=== PATIENT | female | born 1940 | race Caucasian/White ===

== ENCOUNTER 2022-10-17 08:10 | Emergency (ER) | payer MEDICARE ==
[~2022-10-17] VITALS: Ht 149.9 cm; Wt 74.8 kg
[~2022-10-17 08:10] MED LIST: APIX5TAB PO; ATOR10 PO; CALC-1038 PO; CELE200 PO; DILT240C96 PO; FURO20TA6 PO; IRON PO; LETR2.5T7 PO; LEVO25TA54 PO; METO-391 PO; MULT-1192 PO; OMEP20CA12 PO; OXYB5TAB15 PO; POTA-79 PO; SPIR25TA PO; VIT B PO; vit b 12 PO
[2022-10-17 08:12] VITALS: BP 134/76
[2022-10-17 09:10] LABS: BASOPHILS % (AUTO) 0.9 % (0.0-5.0); EOSINOPHILS % (AUTO) 5.4 % (0.0-8.0); HEMATOCRIT 39.3 % (36-48); LYMPHOCYTES % (AUTO) 32.4 % (21.0-51.0); MEAN CORPUSCULAR HEMOGLOBIN 31.3 pg (27.0-33.0); MEAN CORPUSCULAR VOLUME 100.8 fL (79-99); MONOCYTES % (AUTO) 24.2 % (3.0-13.0); NEUTROPHILS % (AUTO) 36.2 % (40.0-77.0); PLATELET COUNT (AUTO) 130 K/uL (130-400); RED CELL DISTRIBUTION WIDTH 14.3 % (11.0-15.5); WHITE BLOOD COUNT (AUTO) 4.4 K/uL (4.8-10.8)
[2022-10-17 09:24] LABS: CREATININE 1.9 mg/dL (0.5-1.5); POTASSIUM 3.8 mmol/L (3.5-5.1)
[2022-10-17 09:25] LABS: ALBUMIN 4.5 g/dL (3.5-5.0); TOTAL PROTEIN, SERUM 7.9 g/dL (6.0-8.3)
[2022-10-17] MEDS ORDERED: HYD25 PO (10:05)
== END 2022-10-17 10:22 | disposition home or self-care (01) ==
LOC: EDH 08:10
DX: L29.9 Pruritus, unspecified (principal); N28.9 Disorder of kidney and ureter, unspecified; I48.91 Unspecified atrial fibrillation; E11.9 Type 2 diabetes mellitus without complications; I10 Essential (primary) hypertension; Z90.710 Acquired absence of both cervix and uterus; Z90.12 Acquired absence of left breast and nipple; Z98.890 Other specified postprocedural states; Z79.899 Other long term (current) drug therapy
CPT/HCPCS: 36415; 80053; 85025

== ENCOUNTER 2024-04-09 12:01 | Inpatient (IN) | payer MEDICARE ==
[~2024-04-09] VITALS: Ht 162.6 cm; Wt 76.2 kg
[~2024-04-09 12:01] MED LIST changes: -ATOR10 PO; -CALC-1038 PO; -CELE200 PO; -DILT240C96 PO; -IRON PO; -LETR2.5T7 PO; -MULT-1192 PO; -OXYB5TAB15 PO; -POTA-79 PO; -SPIR25TA PO; -VIT B PO; -vit b 12 PO
[2024-04-09 12:25] LABS: BASOPHILS # (AUTO) 0.04 K/uL (0.00-0.20); BASOPHILS % (AUTO) 0.6 % (0.0-5.0); EOSINOPHILS # (AUTO) 0.27 K/uL (0.00-0.70); EOSINOPHILS % (AUTO) 4.2 % (0.0-8.0); HEMATOCRIT 23.3 % (36-48); LYMPHOCYTES # (AUTO) 1.1 K/uL (1.0-4.8); LYMPHOCYTES % (AUTO) 17.8 % (21.0-51.0); MEAN CORPUSCULAR HEMOGLOBIN 30.8 pg (27.0-33.0); MEAN CORPUSCULAR VOLUME 102.6 fL (79-99); MONOCYTES # (AUTO) 1.7 K/uL (0.1-1.0); NEUTROPHILS # (AUTO) 3.1 K/uL (1.8-7.7); NEUTROPHILS % (AUTO) 48.8 % (40.0-77.0); PLATELET COUNT (AUTO) 282 K/uL (130-400); RED BLOOD CELL COUNT(AUTO) 2.27 MIL/uL (4.00-5.50); RED CELL DISTRIBUTION WIDTH 17.5 % (11.0-15.5); WHITE BLOOD COUNT (AUTO) 6.4 K/uL (4.8-10.8)
[2024-04-09 12:32] LABS: CREATININE 1.2 mg/dL (0.5-1.0); POTASSIUM 4.5 mmol/L (3.5-5.1)
[2024-04-09 12:37] LABS: ALBUMIN 2.5 g/dL (3.5-5.0); BILIRUBIN,TOTAL 0.7 mg/dL (0.2-1.0); TOTAL PROTEIN, SERUM 6.4 g/dL (6.0-8.3)
[2024-04-09 12:43] LABS: B-TYPE NATRIURETIC PEPTIDE 1430 pg/mL (0-100)
[2024-04-09] MEDS: 0.9% NACL 500ML IV.SOLN 500 ML IV ONE (13:14)
[2024-04-09] MEDS: PANTOPRAZOLE 40 MG/VIAL IVP ONE (14:32)
[2024-04-09 16:30] VITALS: BP 157/66; PULSE 62; RESP 16; O2SAT 99
[2024-04-09 16:35] LABS: INR 1.15 (0.85-1.15); PROTHROMBIN TIME 13.4 SEC (9.6-11.6)
[2024-04-09 16:36] LABS: PARTIAL THROMBOPLASTIN TIME 34.9 SEC (26.3-35.5)
[2024-04-09 16:54] LABS: RETICULOCYTE % (AUTO) 3.03 % (0.42-2.23)
[2024-04-09 17:08] LABS: HEMOGLOBIN A1C 5.4 % (4.0-6.0)
[2024-04-09] MEDS ORDERED: HYDRALAZINE 20MG/ML VIAL IV PRN (17:30)
[2024-04-09] MEDS ORDERED: DOCU100T PO (17:32)
[2024-04-09] MEDS ORDERED: TRAM50TA4 PO (17:32)
[2024-04-09] MEDS ORDERED: MIDO10TA PO (17:32)
[2024-04-09] MEDS ORDERED: FERR-72 PO (17:32)
[2024-04-09] MEDS ORDERED: METO-408 PO (17:32)
[2024-04-09] MEDS ORDERED: POLY17PO4 PO (17:32)
[2024-04-09] MEDS ORDERED: GABA-529 PO (17:32)
[2024-04-09] MEDS ORDERED: LEVO25CA4 PO (17:32)
[2024-04-09 17:33] LABS: % IRON SATURATION 32.4 % (22-44)
[2024-04-09 19:06] VITALS: BP 175/91; PULSE 67; RESP 16
[2024-04-09 19:50] VITALS: O2SAT 95
[2024-04-09] MEDS: PANTOPRAZOLE 40 MG/VIAL IVP SCH (20:48)
[2024-04-09] MEDS: ACETAMINOPHEN 500 MG TABLET PO PRN (20:49)
[2024-04-09 21:10] LABS: APPEARANCE,URINE CLOUDY (CLEAR); BILIRUBIN,URINE NEGATIVE (NEGATIVE); COLOR,URINE LIGHT-YELLOW (YELLOW); GLUCOSE, URINE (UA) NEGATIVE (NEGATIVE); KETONES,URINE NEGATIVE (NEGATIVE); LEUKOCYTE ESTERASE ,URINE 500 Leu/uL (NEGATIVE); NITRATE,URINE NEGATIVE (NEGATIVE); OCCULT BLOOD,URINE MODERATE (NEGATIVE); PROTEIN,URINE 200 mg/dL (NEGATIVE); UROBILINOGEN,URINE 0.2 mg/dL (0.2-1.0)
[2024-04-09 21:14] LABS: ADD UA MICROSCOPIC YES
[2024-04-09 21:18] LABS: BACTERIA,URINE RARE /HPF (None Seen); MUCUS,URINE RARE LPF (None Seen); RBC,URINE 26-50 /HPF (0-1); SQUAMOUS EPITHELIAL CELL,UR RARE /HPF (0-2); WBC CLUMP FEW /HPF (0-1); WBC,URINE 26-50 /HPF (0-1)
[2024-04-09 22:43] LABS: HEMATOCRIT 28.2 % (36-48)
[2024-04-09 23:09] VITALS: BP 147/74; PULSE 66; RESP 16
[2024-04-10] VITALS (8 sets, daily range): BP systolic 134–174; BP diastolic 63–83; PULSE 60–93; RESP 16–20; O2SAT 96–99
[2024-04-10 00:51] LABS: HEMATOCRIT 25.7 % (36-48)
[2024-04-10] MEDS: CEFTRIAXONE 1G VIAL IVPB SCH (04:45)
[2024-04-10 06:51] LABS: BASOPHILS # (AUTO) 0.06 K/uL (0.00-0.20); EOSINOPHILS # (AUTO) 0.28 K/uL (0.00-0.70); EOSINOPHILS % (AUTO) 4.6 % (0.0-8.0); HEMATOCRIT 28.3 % (36-48); IMMATURE GRANULOCYTE ABSOLUTE 0.12 K/uL (0-1); LYMPHOCYTES # (AUTO) 1.1 K/uL (1.0-4.8); LYMPHOCYTES % (AUTO) 17.7 % (21.0-51.0); MEAN CORPUSCULAR HGB CONC 30.4 g/dL (32.0-36.0); MEAN CORPUSCULAR VOLUME 98.6 fL (79-99); MONOCYTES # (AUTO) 1.6 K/uL (0.1-1.0); MONOCYTES % (AUTO) 26.6 % (3.0-13.0); NEUTROPHILS # (AUTO) 2.9 K/uL (1.8-7.7); NEUTROPHILS % (AUTO) 48.1 % (40.0-77.0); PLATELET COUNT (AUTO) 261 K/uL (130-400); RED BLOOD CELL COUNT(AUTO) 2.87 MIL/uL (4.00-5.50); RED CELL DISTRIBUTION WIDTH 19.5 % (11.0-15.5); WHITE BLOOD COUNT (AUTO) 6.1 K/uL (4.8-10.8)
[2024-04-10 07:03] LABS: CREATININE 1.1 mg/dL (0.5-1.0); POTASSIUM 4.3 mmol/L (3.5-5.1)
[2024-04-10] MEDS ORDERED: NON-FORMULARY MEDICATION 1 EACH (Omeprazole 20 MG) PO SCH (09:00)
[2024-04-10] MEDS: FERROUS SULFATE 325 MG TABLET.DR PO SCH (09:03)
[2024-04-10] MEDS: GABAPENTIN 100 MG CAPSULE PO SCH (09:04)
[2024-04-10] MEDS: METOPROLOL SUCCINATE 25 MG TAB.SR.24H PO SCH (09:04)
[2024-04-10 13:07] LABS: HEMATOCRIT 32.2 % (36-48)
[2024-04-10] MEDS: HYDROCORTISONE 25 MG SUPPOSITORY PR ONE (19:05)
[2024-04-10] MEDS: HYDROCORTISONE 25 MG SUPPOSITORY PR SCH (21:00)
[2024-04-10] MEDS: NYSTATIN-TRIAMCINOLONE CREAM 15 GM TP SCH (22:50)
[2024-04-10 23:45] LABS: HEMATOCRIT 27.1 % (36-48); MEAN CORPUSCULAR HEMOGLOBIN 30.7 pg (27.0-33.0); MEAN CORPUSCULAR HGB CONC 31.7 g/dL (32.0-36.0); MEAN CORPUSCULAR VOLUME 96.8 fL (79-99); NUCLEATED RED BLOOD CELLS 0.2 % (0.0-0.19); RED BLOOD CELL COUNT(AUTO) 2.8 MIL/uL (4.00-5.50); RED CELL DISTRIBUTION WIDTH 19.3 % (11.0-15.5); WHITE BLOOD COUNT (AUTO) 8.8 K/uL (4.8-10.8)
[2024-04-10 23:53] LABS: CREATININE 1.2 mg/dL (0.5-1.0); POTASSIUM 4.2 mmol/L (3.5-5.1)
[2024-04-11] VITALS (7 sets, daily range): BP systolic 104–165; BP diastolic 56–91; PULSE 65–77; RESP 18–20; O2SAT 99
[2024-04-11] MEDS: LEVOTHYROXINE 25 MCG TABLET PO SCH (06:31)
[2024-04-12] VITALS (7 sets, daily range): BP systolic 117–159; BP diastolic 66–96; PULSE 66–88; RESP 18–20; O2SAT 96–97
[2024-04-12] MEDS ORDERED: COMPOUND IV MISC 1 EACH IVSOLN MISC PRN (12:30)
[2024-04-12] MEDS: MEROPENEM 1 GM in 0.9%NACL 100ML IV SCH (12:46)
[2024-04-13] VITALS (10 sets, daily range): BP systolic 94–146; BP diastolic 54–86; PULSE 64–90; RESP 16–20; O2SAT 96
[2024-04-13 04:54] LABS: BASOPHILS # (AUTO) 0.03 K/uL (0.00-0.20); BASOPHILS % (AUTO) 0.2 % (0.0-5.0); EOSINOPHILS # (AUTO) 0.06 K/uL (0.00-0.70); EOSINOPHILS % (AUTO) 0.4 % (0.0-8.0); HEMATOCRIT 25.3 % (36-48); IMMATURE GRANULOCYTE ABSOLUTE 0.25 K/uL (0-1); LYMPHOCYTES # (AUTO) 1.1 K/uL (1.0-4.8); LYMPHOCYTES % (AUTO) 7.3 % (21.0-51.0); MEAN CORPUSCULAR HEMOGLOBIN 30.4 pg (27.0-33.0); MEAN CORPUSCULAR HGB CONC 30.8 g/dL (32.0-36.0); MEAN CORPUSCULAR VOLUME 98.4 fL (79-99); MONOCYTES # (AUTO) 5.3 K/uL (0.1-1.0); MONOCYTES % (AUTO) 36.2 % (3.0-13.0); NEUTROPHILS % (AUTO) 54.2 % (40.0-77.0); PLATELET COUNT (AUTO) 242 K/uL (130-400); RED BLOOD CELL COUNT(AUTO) 2.57 MIL/uL (4.00-5.50); RED CELL DISTRIBUTION WIDTH 20.2 % (11.0-15.5); WHITE BLOOD COUNT (AUTO) 14.7 K/uL (4.8-10.8)
[2024-04-13 05:09] LABS: CREATININE 1.2 mg/dL (0.5-1.0); POTASSIUM 3.7 mmol/L (3.5-5.1)
[2024-04-14] VITALS (7 sets, daily range): BP systolic 115–145; BP diastolic 61–78; PULSE 68–82; RESP 18–20; O2SAT 96
[2024-04-14 03:50] LABS: BASOPHILS # (AUTO) 0.02 K/uL (0.00-0.20); BASOPHILS % (AUTO) 0.2 % (0.0-5.0); EOSINOPHILS # (AUTO) 0.07 K/uL (0.00-0.70); EOSINOPHILS % (AUTO) 0.6 % (0.0-8.0); IMMATURE GRANULOCYTE ABSOLUTE 0.16 K/uL (0-1); LYMPHOCYTES % (AUTO) 8.8 % (21.0-51.0); MEAN CORPUSCULAR HEMOGLOBIN 30.6 pg (27.0-33.0); MEAN CORPUSCULAR HGB CONC 30.4 g/dL (32.0-36.0); MEAN CORPUSCULAR VOLUME 100.8 fL (79-99); MONOCYTES # (AUTO) 3.5 K/uL (0.1-1.0); MONOCYTES % (AUTO) 32.1 % (3.0-13.0); NEUTROPHILS # (AUTO) 6.2 K/uL (1.8-7.7); NEUTROPHILS % (AUTO) 56.8 % (40.0-77.0); PLATELET COUNT (AUTO) 234 K/uL (130-400); RED BLOOD CELL COUNT(AUTO) 2.48 MIL/uL (4.00-5.50); WHITE BLOOD COUNT (AUTO) 10.9 K/uL (4.8-10.8)
[2024-04-14 04:20] LABS: CREATININE 1.2 mg/dL (0.5-1.0); PHOSPHORUS 3.4 mg/dL (2.5-4.9); POTASSIUM 3.8 mmol/L (3.5-5.1)
[2024-04-15 03:42] VITALS: BP 125/66; PULSE 73; RESP 18
[2024-04-15 03:47] LABS: BASOPHILS # (AUTO) 0.02 K/uL (0.00-0.20); BASOPHILS % (AUTO) 0.2 % (0.0-5.0); EOSINOPHILS # (AUTO) 0.17 K/uL (0.00-0.70); EOSINOPHILS % (AUTO) 1.6 % (0.0-8.0); HEMATOCRIT 24.8 % (36-48); IMMATURE GRANULOCYTE ABSOLUTE 0.16 K/uL (0-1); LYMPHOCYTES # (AUTO) 1.1 K/uL (1.0-4.8); LYMPHOCYTES % (AUTO) 10.4 % (21.0-51.0); MEAN CORPUSCULAR HEMOGLOBIN 31.2 pg (27.0-33.0); MEAN CORPUSCULAR HGB CONC 31.5 g/dL (32.0-36.0); MEAN CORPUSCULAR VOLUME 99.2 fL (79-99); MONOCYTES # (AUTO) 2.9 K/uL (0.1-1.0); NEUTROPHILS # (AUTO) 6.1 K/uL (1.8-7.7); NEUTROPHILS % (AUTO) 58.3 % (40.0-77.0); PLATELET COUNT (AUTO) 240 K/uL (130-400); RED CELL DISTRIBUTION WIDTH 19.4 % (11.0-15.5); WHITE BLOOD COUNT (AUTO) 10.5 K/uL (4.8-10.8)
[2024-04-15 04:00] LABS: CREATININE 1.1 mg/dL (0.5-1.0); POTASSIUM 3.9 mmol/L (3.5-5.1)
[2024-04-15 07:13] VITALS: BP 145/77; PULSE 81; RESP 18
[2024-04-15 08:00] VITALS: O2SAT 97
[2024-04-15 11:17] VITALS: BP 144/80; PULSE 77; RESP 18
[2024-04-15] MEDS ORDERED: PHARMACY COMMUNICATION MISC SCH (12:30)
[2024-04-15] MEDS ORDERED: COMPOUND PO MISCELLANEOUS 1 EACH MISC MISC PRN (13:00)
[2024-04-15] MEDS: LIDO 2% VISC 30ML+MAG/AL/SIMETH 30ML+DICYCLOMINE 20MG 10ML PO PRN (13:11)
[2024-04-15 15:37] VITALS: BP 132/76; PULSE 71; RESP 18
[2024-04-15 20:00] VITALS: BP 132/68; PULSE 71; RESP 18; O2SAT 97
[2024-04-16] VITALS (8 sets, daily range): BP systolic 119–145; BP diastolic 65–79; PULSE 69–78; RESP 16–20; O2SAT 97–98
[2024-04-16 03:46] LABS: BASOPHILS # (AUTO) 0.04 K/uL (0.00-0.20); BASOPHILS % (AUTO) 0.5 % (0.0-5.0); EOSINOPHILS # (AUTO) 0.23 K/uL (0.00-0.70); HEMATOCRIT 25.8 % (36-48); IMMATURE GRANULOCYTE ABSOLUTE 0.25 K/uL (0-1); LYMPHOCYTES # (AUTO) 0.8 K/uL (1.0-4.8); LYMPHOCYTES % (AUTO) 10.1 % (21.0-51.0); MONOCYTES # (AUTO) 1.7 K/uL (0.1-1.0); MONOCYTES % (AUTO) 22.7 % (3.0-13.0); NEUTROPHILS # (AUTO) 4.6 K/uL (1.8-7.7); NEUTROPHILS % (AUTO) 60.4 % (40.0-77.0); PLATELET COUNT (AUTO) 268 K/uL (130-400); RED BLOOD CELL COUNT(AUTO) 2.58 MIL/uL (4.00-5.50); RED CELL DISTRIBUTION WIDTH 18.9 % (11.0-15.5); WHITE BLOOD COUNT (AUTO) 7.6 K/uL (4.8-10.8)
[2024-04-16 03:51] LABS: CREATININE 1.1 mg/dL (0.5-1.0); POTASSIUM 4.2 mmol/L (3.5-5.1)
[2024-04-16] MEDS: LEVOTHYROXINE 25 MCG TABLET PO SCH (05:50)
[2024-04-17] VITALS (8 sets, daily range): BP systolic 115–165; BP diastolic 70–85; PULSE 67–108; RESP 18–22; O2SAT 97–98
[2024-04-17] MEDS: BALSAM PERU/CASTOR OIL 60 GM TUBE TP SCH (17:20)
[2024-04-18] VITALS (8 sets, daily range): BP systolic 138–153; BP diastolic 62–100; PULSE 69–89; RESP 18; O2SAT 97–98
[2024-04-18 04:30] LABS: BASOPHILS # (AUTO) 0.05 K/uL (0.00-0.20); BASOPHILS % (AUTO) 0.8 % (0.0-5.0); EOSINOPHILS # (AUTO) 0.43 K/uL (0.00-0.70); EOSINOPHILS % (AUTO) 7.1 % (0.0-8.0); HEMATOCRIT 28.9 % (36-48); IMMATURE GRANULOCYTE ABSOLUTE 0.27 K/uL (0-1); LYMPHOCYTES # (AUTO) 1.1 K/uL (1.0-4.8); LYMPHOCYTES % (AUTO) 17.5 % (21.0-51.0); MEAN CORPUSCULAR HEMOGLOBIN 29.7 pg (27.0-33.0); MEAN CORPUSCULAR HGB CONC 30.1 g/dL (32.0-36.0); MEAN CORPUSCULAR VOLUME 98.6 fL (79-99); MONOCYTES # (AUTO) 1.3 K/uL (0.1-1.0); MONOCYTES % (AUTO) 20.6 % (3.0-13.0); NEUTROPHILS % (AUTO) 49.5 % (40.0-77.0); PLATELET COUNT (AUTO) 232 K/uL (130-400); RED BLOOD CELL COUNT(AUTO) 2.93 MIL/uL (4.00-5.50); RED CELL DISTRIBUTION WIDTH 18.9 % (11.0-15.5); WHITE BLOOD COUNT (AUTO) 6.1 K/uL (4.8-10.8)
[2024-04-18 04:33] LABS: MAGNESIUM 2.1 mg/dL (1.80-2.40); PHOSPHORUS 3.7 mg/dL (2.5-4.9); POTASSIUM 4.8 mmol/L (3.5-5.1)
[2024-04-19] VITALS (9 sets, daily range): BP systolic 137–153; BP diastolic 74–90; PULSE 64–86; RESP 18–20; O2SAT 99–100
[2024-04-19 04:22] LABS: BASOPHILS # (AUTO) 0.04 K/uL (0.00-0.20); BASOPHILS % (AUTO) 0.5 % (0.0-5.0); EOSINOPHILS # (AUTO) 0.45 K/uL (0.00-0.70); EOSINOPHILS % (AUTO) 5.8 % (0.0-8.0); IMMATURE GRANULOCYTE ABSOLUTE 0.36 K/uL (0-1); LYMPHOCYTES # (AUTO) 1.2 K/uL (1.0-4.8); LYMPHOCYTES % (AUTO) 15.5 % (21.0-51.0); MEAN CORPUSCULAR HEMOGLOBIN 30.5 pg (27.0-33.0); MEAN CORPUSCULAR HGB CONC 29.7 g/dL (32.0-36.0); MEAN CORPUSCULAR VOLUME 102.6 fL (79-99); MONOCYTES # (AUTO) 1.9 K/uL (0.1-1.0); MONOCYTES % (AUTO) 24.5 % (3.0-13.0); NEUTROPHILS # (AUTO) 3.8 K/uL (1.8-7.7); NEUTROPHILS % (AUTO) 49.1 % (40.0-77.0); PLATELET COUNT (AUTO) 342 K/uL (130-400); RED BLOOD CELL COUNT(AUTO) 3.02 MIL/uL (4.00-5.50); RED CELL DISTRIBUTION WIDTH 18.9 % (11.0-15.5); WHITE BLOOD COUNT (AUTO) 7.8 K/uL (4.8-10.8)
[2024-04-19] MEDS: APIXABAN 2.5 MG TABLET PO SCH (20:26)
[2024-04-20] VITALS (8 sets, daily range): BP systolic 121–164; BP diastolic 69–99; PULSE 69–95; RESP 16–24; O2SAT 98–99
[2024-04-20 03:30] LABS: BASOPHILS # (AUTO) 0.04 K/uL (0.00-0.20); BASOPHILS % (AUTO) 0.4 % (0.0-5.0); EOSINOPHILS # (AUTO) 0.37 K/uL (0.00-0.70); EOSINOPHILS % (AUTO) 3.3 % (0.0-8.0); HEMATOCRIT 29.1 % (36-48); IMMATURE GRANULOCYTE ABSOLUTE 0.24 K/uL (0-1); LYMPHOCYTES # (AUTO) 1.2 K/uL (1.0-4.8); LYMPHOCYTES % (AUTO) 10.3 % (21.0-51.0); MEAN CORPUSCULAR HEMOGLOBIN 30.8 pg (27.0-33.0); MEAN CORPUSCULAR HGB CONC 30.9 g/dL (32.0-36.0); MEAN CORPUSCULAR VOLUME 99.7 fL (79-99); MONOCYTES # (AUTO) 3.9 K/uL (0.1-1.0); MONOCYTES % (AUTO) 35.1 % (3.0-13.0); NEUTROPHILS # (AUTO) 5.4 K/uL (1.8-7.7); NEUTROPHILS % (AUTO) 48.7 % (40.0-77.0); PLATELET COUNT (AUTO) 334 K/uL (130-400); RED BLOOD CELL COUNT(AUTO) 2.92 MIL/uL (4.00-5.50); RED CELL DISTRIBUTION WIDTH 18.9 % (11.0-15.5); WHITE BLOOD COUNT (AUTO) 11.1 K/uL (4.8-10.8)
[2024-04-20 03:43] LABS: POTASSIUM 4.6 mmol/L (3.5-5.1)
[2024-04-21] VITALS (9 sets, daily range): BP systolic 118–144; BP diastolic 56–83; PULSE 72–84; RESP 16–18; O2SAT 99
[2024-04-21 03:51] LABS: HEMATOCRIT 27.1 % (36-48); MEAN CORPUSCULAR HEMOGLOBIN 31.2 pg (27.0-33.0); MEAN CORPUSCULAR VOLUME 100.7 fL (79-99); RED BLOOD CELL COUNT(AUTO) 2.69 MIL/uL (4.00-5.50); RED CELL DISTRIBUTION WIDTH 19.3 % (11.0-15.5); WHITE BLOOD COUNT (AUTO) 10.4 K/uL (4.8-10.8)
[2024-04-21 04:23] LABS: ALBUMIN 2.2 g/dL (3.5-5.0); BILIRUBIN,TOTAL 0.6 mg/dL (0.2-1.0); CREATININE 1.1 mg/dL (0.5-1.0); MAGNESIUM 1.9 mg/dL (1.80-2.40); TOTAL PROTEIN, SERUM 5.7 g/dL (6.0-8.3)
[2024-04-22] VITALS (7 sets, daily range): BP systolic 106–153; BP diastolic 59–84; PULSE 78–88; RESP 16; O2SAT 94–97
[2024-04-22 04:57] LABS: MEAN CORPUSCULAR HEMOGLOBIN 31.5 pg (27.0-33.0); MEAN CORPUSCULAR HGB CONC 31.5 g/dL (32.0-36.0); RED BLOOD CELL COUNT(AUTO) 2.6 MIL/uL (4.00-5.50); RED CELL DISTRIBUTION WIDTH 19.2 % (11.0-15.5); WHITE BLOOD COUNT (AUTO) 10.7 K/uL (4.8-10.8)
[2024-04-22 05:14] LABS: BILIRUBIN,TOTAL 0.7 mg/dL (0.2-1.0); MAGNESIUM 1.8 mg/dL (1.80-2.40); POTASSIUM 3.8 mmol/L (3.5-5.1); TOTAL PROTEIN, SERUM 5.5 g/dL (6.0-8.3)
[2024-04-22] MEDS: MAGNESIUM 2GM PREMIX 50ML 50 ML IV SCH (05:53)
[2024-04-22] MEDS: KCL 20 MEQ ERTAB PO ONE (08:35)
[2024-04-23] VITALS (8 sets, daily range): BP systolic 113–144; BP diastolic 54–79; PULSE 67–81; RESP 16–20; O2SAT 94–96
[2024-04-23 05:29] LABS: HEMATOCRIT 28.8 % (36-48); MEAN CORPUSCULAR HEMOGLOBIN 31.3 pg (27.0-33.0); MEAN CORPUSCULAR HGB CONC 30.9 g/dL (32.0-36.0); MEAN CORPUSCULAR VOLUME 101.4 fL (79-99); RED BLOOD CELL COUNT(AUTO) 2.84 MIL/uL (4.00-5.50); RED CELL DISTRIBUTION WIDTH 19.1 % (11.0-15.5); WHITE BLOOD COUNT (AUTO) 10.4 K/uL (4.8-10.8)
[2024-04-23 05:43] LABS: ALBUMIN 2.3 g/dL (3.5-5.0); POTASSIUM 4.2 mmol/L (3.5-5.1); TOTAL PROTEIN, SERUM 6.3 g/dL (6.0-8.3)
[2024-04-24 03:19] VITALS: BP 128/73; PULSE 80; RESP 16
[2024-04-24 08:00] VITALS: BP 144/66; PULSE 86; RESP 20
[2024-04-24 08:18] VITALS: O2SAT 97
== END 2024-04-24 10:30 | DRG 871 ==
LOC: EDH 12:01 → EDHIP 15:29 → 2AH 15:51
PROVIDERS: ADMIT Internal Medicine; ATTEND Internal Medicine
PROC: 30233N1 Transfusion of Nonautologous Red Blood Cells into Peripheral Vein, Percutaneous Approach (ICD-10-PCS; principal; 2024-04-09)
DX: A41.9 Sepsis, unspecified organism (principal); G93.41 Metabolic encephalopathy; J96.20 Acute and chronic respiratory failure, unspecified whether with hypoxia or hypercapnia; I13.0 Hypertensive heart and chronic kidney disease with heart failure and stage 1 through stage 4 chronic kidney disease, or unspecified chronic kidney disease; N39.0 Urinary tract infection, site not specified; I50.32 Chronic diastolic (congestive) heart failure; N17.9 Acute kidney failure, unspecified; Z16.12 Extended spectrum beta lactamase (ESBL) resistance; Z16.24 Resistance to multiple antibiotics; E83.51 Hypocalcemia; N18.30 Chronic kidney disease, stage 3 unspecified; Z79.01 Long term (current) use of anticoagulants; D53.9 Nutritional anemia, unspecified; B96.20 Unspecified Escherichia coli [E. coli] as the cause of diseases classified elsewhere; D72.821 Monocytosis (symptomatic); E78.5 Hyperlipidemia, unspecified; I08.3 Combined rheumatic disorders of mitral, aortic and tricuspid valves; I89.0 Lymphedema, not elsewhere classified; L22 Diaper dermatitis; L89.322 Pressure ulcer of left buttock, stage 2; D69.6 Thrombocytopenia, unspecified; R32 Unspecified urinary incontinence; Z79.2 Long term (current) use of antibiotics; Z79.899 Other long term (current) drug therapy; Z85.3 Personal history of malignant neoplasm of breast; Z87.442 Personal history of urinary calculi; Z90.12 Acquired absence of left breast and nipple; Z90.710 Acquired absence of both cervix and uterus; Z95.0 Presence of cardiac pacemaker; Z98.84 Bariatric surgery status
CPT/HCPCS: 36415; 36430; 70450; 71045; 80048; 80053; 81001; 82270; 82607; 82728; 82948; 83036; 83690; 83735; 83880; 84100; 84145; 84443; 84484; 85014; 85018; 85025; 85027; 85610; 85730; 86140; 86850; 86900; 86901; 86923; 87040; 87077; 87088; 87186; 88184; 88185; 88189; 92610; 93005; 93306; 93356; 93971; 96374; 96376; 99291; A4344; C9113; G0378; J0360; J0696; J2185; J3475; P9016